=== PATIENT | male | born 2000 | race Two or more races ===

== ENCOUNTER 2022-10-13 00:53 | Emergency (ER) | payer SELFPAY ==
[2022-10-13] MEDS ORDERED: Ibuprofen 600 MG Tab PO ONE (01:18)
[2022-10-13] MEDS ORDERED: Clindamycin HCl 150 MG Cap PO STA (01:18)
[2022-10-13] MEDS ORDERED: Acetaminophen/oxyCODONE 325-5 MG Tab PO ONE (01:18)
== END 2022-10-13 01:39 | disposition home or self-care (01) ==
LOC: MW.ED 00:53
DX: K04.7 Periapical abscess without sinus (principal); Z88.0 Allergy status to penicillin
CPT/HCPCS: 99282; A9270; 99283